=== PATIENT | female | born 1985 | race Caucasian/White ===

== ENCOUNTER 2022-02-01 11:44 | Outpatient (CLI) | payer SELFPAY ==
--- NOTE | ~2022-02-01 | MMUS_ITS ---
EXAMINATION: MM diagnostic panfilo BI w remedios, US breast BI complete HISTORY: Palpable breast lumps. TECHNIQUE: Additional 3-D tomosynthesis images of the breasts were performed and synthetic 2-D images were generated. CAD analysis was submitted and interpreted. High resolution bilateral complete breas t ultrasound was performed. COMPARISON: No prior studies for comparison. BREAST PARENCHYMAL COMPOSITION: The breasts are heterogenously dense, which may obscure small masses FINDINGS: MAMMOGRAPHIC FINDINGS: There are multiple masses in both breasts which are partially obscured by fibroglandular tissue. Larg est in the left breast in the upper outer quadrant measures approximately 3 cm. In the upper outer qu adrant of the right breast there is a 1 cm mass. ULTRASOUND: Complete bilateral US of all 4 quadrants of the breasts and retroareolar region was reviewed. Multipl e bilateral breast cysts, largest in the right breast measuring 1 cm. Largest in the left breast in t he area of palpable concern at 4:00 measuring 2.1 cm maximum dimension. At 1:00, 10 cm from the nippl e there is a 2.6 cm cyst. IMPRESSION: 1. Multiple bilateral breast cysts corresponding to the areas of palpable concern. No evidence for ma lignancy in either breast. 2. Routine yearly screening mammogram and regular clinical breast examination are recommended. BI-RADS Category 2: Benign finding(s). Reviewed, dictated and finalized at location A. IMPRESSION: 1. Multiple bilateral breast cysts corresponding to the areas of palpable hitesh rn. No evidence for malignancy in either breast. 2. Routine yearly screening mammogram and regular clinical breast examination a re recommended. BI-RADS Category 2: Benign finding(s).
== END 2022-02-01 11:45 | disposition home or self-care (01) ==
PROVIDERS: PCP Family Medicine; Visit Provider Nurse Practitioner Obstetrics & Gynecology
DX: N63.32 Unspecified lump in axillary tail of the left breast (principal)
CPT/HCPCS: 76641; 77061; 77062; 77065; 77066; G0279

== ENCOUNTER 2023-09-26 08:41 | Outpatient (CLI) | payer OTHER, SELFPAY ==
--- NOTE | 2023-09-26 08:51 | ECG_ITS ---
Measurements Intervals [place] Rate: 70 P: 42 MA: 133 QRS: -24 QRSD: 83 T: 27 QT: 403 QTc: 437 Interpretive Statements SINUS RHYTHM WITH MARKED SINUS ARRHYTHMIA BORDERLINE LEFT AXIS DEVIATION [QRS AXIS < -20] LOW QRS VOLTAGE IN PRECORDIAL LEADS [QRS DEFLECTION < 1.0 mV IN CHEST LEADS] BORDERLINE ECG NO PREVIOUS ECG AVAILABLE FOR COMPARISON Electronically Signed On 09-26-2023 16:24:53 MACHINE REPAIRMAN by John Weir M.D.
[2023-09-26 09:15] LABS: Basophils Percent Auto 0.6 % (0.2-1.2); Eosinophils Absolute Auto 0.1 K/mm3 (0-0.3); Eosinophils Percent Auto 1.3 % (0-4.4); Hematocrit 43.2 % (37.0-47.0); Hemoglobin 13.5 g/dL (12.0-15.0); Immature Granulocyte Absolute 0.03 K/mm3 (0.00-0.031); Immature Granulocyte Percent A 0.4 % (0-0.5); Lymphocytes Percent Auto 22.2 % (18.3-44.2); Mean Corpuscular HGB Conc 31.3 g/dl (32-36); Mean Corpuscular Hemoglobin 28.1 pg (26-34); Mean Platelet Volume 9.6 fl (7.4-10.4); Monocytes Absolute Auto 0.4 K/mm3 (0.1-0.6); Monocytes Percent Auto 6.2 % (2.6-8.5); Neutrophils Absolute Auto 4.7 K/mm3 (1.3-6.7); Neutrophils Percent Auto 69.3 % (45.5-73.1); Platelet Count Result 272 k/mm3 (150-375); Red Cell Distribution Width 12.6 % (11.5-14.5); White Blood Count 6.8 K/mm3 (4.5-10.0)
[2023-09-26 09:48] LABS: Free T4 Free Thyroxine 1.22 ng/mL (0.78-2.19)
[2023-09-26 09:56] LABS: Thyroid Stimulating Hormone 0.638 uIU/mL (0.465-4.680)
[2023-09-26 10:05] LABS: Alanine Aminotransferase 15 U/L (6-35); Alkaline Phosphatase 62 U/L (38-126); Aspartate Amino Transferase 24 U/L (14-36); Blood Urea Nitrogen 22 mg/dL (7-17); Calcium 9.2 mg/dL (8.4-10.2); Chloride 105 mmol/L (98-107); Glucose 100 mg/dL (65-110); Potassium 4.3 mmol/L (3.4-5.0); Sodium 138 mmol/L (137-145)
[2023-09-26 10:06] LABS: Albumin Level 4.4 g/dL (3.5-5.1); Anion Gap 5 mmol/L (8-16); Carbon Dioxide 28 mmol/L (22-30); Estimated Glomerular Filt Rate > 60
== END 2023-09-26 08:42 | disposition home or self-care (01) ==
LOC: ANHLAB 08:42
PROVIDERS: PCP Family Medicine; Visit Provider Physician Assistant
DX: D64.9 Anemia, unspecified (principal); R42 Dizziness and giddiness; R00.2 Palpitations; R94.31 Abnormal electrocardiogram [ECG] [EKG]
CPT/HCPCS: 36415; 80053; 84439; 84443; 85025; 93005

== ENCOUNTER 2024-01-28 10:21 | Outpatient (CLI) | payer OTHER, SELFPAY ==
--- NOTE | ~2024-01-28 | MMUS_ITS ---
EXAMINATION: MM diagnostic panfilo BI w remedios, US breast BI limited HISTORY: Palpable lumps outer left breast TECHNIQUE: 3-D tomosynthesis images of the bilateral breasts were performed and synthetic 2-D images were generated. CAD analysis was submitted and interpreted. High resolution limited bilateral breast ultrasound was performed. COMPARISON: 02/01/2022 FINDINGS: MAMMOGRAPHIC FINDINGS: Breast parenchyma is extremely dense, which lowers the sensitivity of mammography. There are multiple low-density bilateral breast masses, most prominent at the upper, outer left breast, most compatible multiple bilateral cysts and/or fibroadenomas. No overtly suspicious mammographic mass identified. N o architectural distortion or suspicious microcalcifications seen in either breast. ULTRASOUND: There are multiple simple or otherwise benign cysts seen in the region scanned in both breasts, invol ving the left 2:00, 4:00, 9:00 positions, and the right subareolar and 4:00 positions. Largest indivi dual cyst is at the 2:00 position left breast, measuring 4 cm in maximum diameter. No solid or otherw ise suspicious lesions seen in the regions scanned sonographically. IMPRESSION: No evidence for malignancy. Multiple breast cysts, as detailed above. BI-RADS Category 2: Benign finding(s). Reviewed, dictated and finalized at location M. IMPRESSION: No evidence for malignancy. Multiple breast cysts, as detailed above. BI-RADS Category 2: Benign finding(s).
== END 2024-01-28 10:22 | disposition home or self-care (01) ==
PROVIDERS: PCP Family Medicine; Visit Provider Nurse Practitioner
DX: N63.0 Unspecified lump in unspecified breast (principal)
CPT/HCPCS: 76642; 77062; 77066; G0279

== ENCOUNTER 2024-09-05 10:22 | Emergency (ER) | payer OTHER, SELFPAY ==
--- OUTSIDE RECORDS SUMMARY | 2024-09-05 10:34 | XMS_ITS | Referral Summary ---
Author Organization [facility] Address [address] [place] [address] Care Team Providers Care Mailroom Assistant Name Role Phone Keegan Velasquez MD Primary Care Provider [phone] Source Comments [facility],non-owned Affiliates and Associated Physician Practices is amultiple site organization consisting of ambulatory clinics and hospital sitesin [place] and [place]. This disclosure is being madepursuant to the Care Everywhere program and may not contain all information available regarding this patient. Last updated 18.[facility] Allergies No known active allergies Medications Be aware that medications may not be up to date on this document. Always verify current medications with the patient. No known medications Active Problems No known active problems Social History Tobacco Use Types Packs/Day Years Used Date Smoking Tobacco: Never Smokeless Tobacco: Never Tobacco Cessation:Counseling Given: Not Answered Sex and Gender Information Value Date Recorded Sex Assigned at Not on file Gender Identity Not on file Sexual Orientation Not on file Last Filed Vital Signs Vital Sign Reading Time Taken Comments Blood Pressure 112/62 02/15/2024 3:22 PM CDT Pulse 90 02/15/2024 3:22 PM CDT Temperature 37.2 ??C (98.9 ??F) 02/15/2024 3:22 PM CD T Respiratory Rate 16 04/27/2020 6:30 PM CDT Oxygen Saturation 96% 02/15/2024 3:22 PM CDT Inhaled Oxygen Concentration - - Weight 58.8 kg (129 lb 9.6 oz) 02/15/2024 3:22 P M CDT Height 160 cm (5' 3 ) 04/27/2020 6:30 PM CDT Body Mass Index 22.96 04/27/2020 6:30 PM CDT Plan of Treatment Not on file Care Teams Mailroom Assistant Relationship Specialty Start Date End Date Keegan Velasquez MD [address] [place] [address] PCP - General Family Medicine 01/10/24
--- OUTSIDE RECORDS SUMMARY | 2024-09-05 10:34 | XMS_ITS | Clinical Summary ---
Author Organization [facility] Address [address] [place] [address] Care Team Providers Care Environmental Sciences Professor Name Role Phone Keegan Velasquez MD Primary Care Provider [phone] Source Comments [facility],non-owned Affiliates and Associated Physician Practices is amultiple site organization consisting of ambulatory clinics and hospital sitesin [place], [place] and [place]. This disclosure is being madepursuant to the Care Everywhere program and may not contain all information available regarding this patient. Last updated 18.[facility] Allergies No known active allergies Medications Be [...] 04/27/2020 6:30 PM CDT Plan of Treatment Health Maintenance Due Date Last Done Comments HIV SCREENING 11/16/1999 HEPATITIS C SCREENING 11/11/2002 DTAP/TDAP/TD VACCINES (1 - Tdap) 11/16/2003 HEPATITIS B VACCINE (1 of 3 - 19+ 3-dose series) 11/16/2003 COVID-19 VACCINE (1 - 2023-2 5 season) 2024 INFLUENZA VACCINE (#1) 2024 DEPRESSION SCREENING 08/06/2024 PAP SMEAR 01/08/2027 01/09/2024 ZOSTER VACCINE (1 of 2) 2034 HIB VACCINE Aged Out No longer eligi ble based on patient's age to complete this topic HPV VACCINE Aged Out No longer eligi ble based on patient's age to complete this topic MENINGOCOCCAL (Group B) VACCINE Aged Out No longer eligible based on patient's age to complete this topic MENINGOCOCCAL VACCINE Aged Out No zeynep guzman eligible based on patient's age to complete this topic PNEUMOCOCCAL VACCINE Aged Out No long er eligible based on patient's age to complete this topic Care Teams Environmental Sciences Professor Relationship Specialty Start Date End Date Keegan Velasquez MD [address] [place] [address] PCP - General Family Medicine 01/10/24
--- OUTSIDE RECORDS SUMMARY | 2024-09-05 10:34 | XMS_ITS | Data Portability ---
Author Organization [facility] [place] Address [address] [place] [address] Care Team Providers Care Template Fitter Name Role Phone MARCE FAUST Primary Care Provider Assessment Encounter Date Assessment Date Assessment LastModified by Organization Details LastModified Time 10/25/2021 10/25/2021 Annual gynecological exam performed. Patient will come back in a year unless there are new symptoms. Not available 10/25/2021 12:30:11 01/09/2024 01/09/2024 Annual gynecological exam performed. Patient will come back in a year unless there are new symptoms. Not available 01/09/2024 12:24:45 Plan of Treatment Reminders Order Date Submit Date Provider Last Modified By Organization Details Last Modified Time Details Appointments None recorded. Lab hormone panel, serum or plasma 2023 [facility] (Lab), [address], [place], [address], 4 04:37:43 25-hydroxyv itamin D2 + 25-hydroxyv itamin D3, QN, serum or plasma 2023 024 [facility] (Lab), [address], [place], [address], 4 04:37:44 TSH, serum or plasma 2023 024 [facility] (Lab), [address], [place], [address], 4 04:37:43 free T3, quantitativ e, dialysis serum or plasma 2023 024 [facility] (Lab), [address], [place], [address], 4 04:37:42 T4, free, serum 2023 024 [facility] (Lab), [address], [place], [address], 4 04:37:43 thyroglobul in Ab, serum 2023 024 [facility] (Lab), [address], [place], [address], 4 04:37:42 CBC w/ auto diff 2023 024 [facility] (Lab), [address], [place], [address], 4 04:37:41 Referral None recorded. Procedures None recorded. Surgeries None recorded. Imaging MAMMO, diagnostic, digital, bilateral 2023 024 [facility], [address], [address], [place], [address], 4 14:45:47 US, breast, unilateral, w/ axilla - left breast lumps, around 2-4 oclock 2023 024 [facility], [address], [place], [address], 4 05:01:48 Medication Orders None recorded. Patient TargetsNo targets recorded. Patient InstructionsNo instructions recorded. Reason for Referral None Reported. 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 Elect pieter perdomo felisa d by Deidre thomas, Vin subramanian, CT on 022 at 5:01 PM ----- ----- ----- ----- ----- ----- ----- ----- ----- ----- ----- ----- ----- ----- ----- ----- ----- ---- HPV RESUL TS: HPV mRNA E6/E7 : No HPV mRNA Detec yolanda NOTE: This high risk HPV mRNA assay detec ts fourt een high- risk HPV types (16, 18, 31, 33, 35, 39, 45, 51, 52, 56, 58, 59, 66, 68) witho ut diffe renti ation . COMME NT: Note: This speci men was revie wed by a Cytot echno logis t and/o r Patho logis t (as indic ated in this repor t) after evalu ation using the Thinp rep Imagi ng Syste m. CLINI GITA INFOR MATIO N: Menst rual Statu s: LMP (if appli cable ): Clini gita Histo ry/Pr eviou s Pap: Type of Neopl dagmar (if appli cable ): Signi fican t Clini gita Findi ngs: Other Histo ry: Hormo kiya (if appli cable ): PAP EDUCA DORA L NOTE: The Pap Test is a scree mars test with an inher ent false negat delphine rate. Liqui d-bas ed sampl ing may decre ase, but will not elimi mara, false negat delphine resul ts. A negat delphine resul t does not precl ude the prese nce and/o r devel opmen t of disea se, since the prese nce of abnor mal cells in the sampl e depen ds on the locat ion of the lesio n and sampl ing techn ique. Nadia nued regul ar scree mars is the best metho d of cance r preve ntion . If repor yolanda cytol ogic findi ng do not corre late with physi gita and/o r histo rical findi ngs, furth er inves tigat ion is recom anabela d, as clini michael kamara nted. Not Available [facility] (Lab) [address] [facility] [address], [place], [address], 11/09/2021 18:04:42 01/09/20 24 01/09/2024 CBC W/DIF F WBC 7.1 10'3/ uL 3.5-10 .5 Not Available [facility] (Lab) [address] [facility], [place], [address], 01/10/2024 04:37:41 01/09/20 24 01/09/2024 CBC W/DIF F RBC 4.91 10'6/ uL (based on docume nted legal sex) 3.80-5 .20 Not Available [facility] (Lab) [address] [place], [address], 01/10/2024 04:37:41 01/09/20 24 01/09/2024 CBC W/DIF F HGB 14.0 g/dL (based on docume nted legal sex) 11.6-1 5.4 Not Available [facility] (Lab) [address] [facility], [place], [address], 01/10/2024 04:37:41 01/09/20 24 01/09/2024 CBC W/DIF F HCT 43.3 % (based on docume nted legal sex) 34.0-4 5.0 Not Available [facility] (Lab) [address], [place], [address], 01/10/2024 04:37:41 01/09/20 24 01/09/2024 CBC W/DIF F MCV 88.2 fL 80.0-9 9.0 Not Available [facility] (Lab) [address], [place], [address], 01/10/2024 04:37:41 01/09/20 24 01/09/2024 CBC W/DIF F MCH 28.5 pg 27.0-3 4.0 Not Available [facility] (Lab) [address], [place], [address], 01/10/2024 04:37:41 01/09/20 24 01/09/2024 CBC W/DIF F MCHC 32.3 g/dL 32.0-3 5.5 Not Available [facility] (Lab) [address], [place], [address], 01/10/2024 04:37:41 01/09/20 24 01/09/2024 CBC W/DIF F RDW 12.4 % 11.0-1 5.0 Not Available [facility] (Lab) [address], [place], [address], 01/10/2024 04:37:41 01/09/20 24 01/09/2024 CBC W/DIF F plt 323 10'3/ uL 150-40 0 Not Available [facility] (Lab) [address] [place], [address], 01/10/2024 04:37:41 01/09/20 24 01/09/2024 CBC W/DIF F MPV 9.6 fL 8.8-12 .1 Not Available [facility] (Lab) [address], [place], [address], 01/10/2024 04:37:41 01/09/20 24 01/09/2024 CBC W/DIF F NRBC's 0.0 % 0.0 Not Available [facility] (Lab) [address] [facility], [place], [address], 01/10/2024 04:37:41 01/09/20 24 01/09/2024 CBC W/DIF F absolute NRBCs 0.0 10'3/ uL no refere nce range establ ished Not Available [facility] (Lab) [address] [facility], [place], [address], 01/10/2024 04:37:41 01/09/20 24 01/09/2024 CBC W/DIF F neutrophils 67.4 % 34.0-7 3.0 Not Available [facility] (Lab) [address] [facility], [place], [address], 01/10/2024 04:37:41 01/09/20 24 01/09/2024 CBC W/DIF F lymphocytes 23.8 % 15.0-5 0.0 Not Available [facility] (Lab) [address] [facility], [place], [address], 01/10/2024 04:37:41 01/09/20 24 01/09/2024 CBC W/DIF F monocytes 7.0 % 1.0-15 .0 Not Available [facility] (Lab) [address] [facility], [place], [address], 01/10/2024 04:37:41 01/09/20 24 01/09/2024 CBC W/DIF F eosinophils 1.1 % 0.0-8. 0 Not Available [facility] (Lab) [address] [place], [address], 01/10/2024 04:37:41 01/09/20 24 01/09/2024 CBC W/DIF F basophils 0.4 % 0.0-2. 0 Not Available [facility] (Lab) [address] [facility], [place], [address], 01/10/2024 04:37:41 01/09/20 24 01/09/2024 CBC W/DIF F immature granulocytes 0.3 % no define d refere nce range Not Available [facility] (Lab) [address] [facility], [place], [address], 01/10/2024 04:37:41 01/09/20 24 01/09/2024 CBC W/DIF F absolute neutrophils 4.8 10'3/ uL 1.5-8. 0 Not Available [facility] (Lab) [address], [place], [address], 01/10/2024 04:37:41 01/09/20 24 01/09/2024 CBC W/DIF F absolute lymphocytes 1.7 10'3/ uL 1.0-4. 0 Not Available [facility] (Lab) [address], [place], [address], 01/10/2024 04:37:41 01/09/20 24 01/09/2024 CBC W/DIF F absolute monocytes 0.5 10'3/ uL 0.2-1. 0 Not Available [facility] (Lab) [address] [place], [address], 01/10/2024 04:37:41 01/09/20 24 01/09/2024 CBC W/DIF F absolute eosinophils 0.1 10'3/ uL 0.0-0. 6 Not Available [facility] (Lab) [address] [place], [address], 01/10/2024 04:37:41 01/09/20 24 01/09/2024 CBC W/DIF F absolute basophils 0.0 10'3/ uL 0.0-0. 3 Not Available [facility] (Lab) [address] [place], [address], 01/10/2024 04:37:41 01/09/20 24 01/09/2024 CBC W/DIF F absolute immature granulocytes 0.0 10'3/ uL 0.00-0 .10 024 1:48 AM: P indic ates parti al resul ts on a panel have been relea sed. Addit ional resul ts will follo w. 024 1:49 AM: This resul t has been final verif ied. No addit ional or alvarado ed resul ts are expec yolanda. Not Available [facility] (Lab) [address] [facility], [place], [address], 01/10/2024 04:37:41 01/09/20 24 01/09/2024 THYRO ID ANTIB LYNDA PANEL thyroglobuli n antibody <1.0 IU/mL <=3.9 Not Available [facility] (Lab) [address] [facility] [address], [place], [address], 01/10/2024 04:37:42 01/09/20 24 01/09/2024 THYRO ID ANTIB LYNDA PANEL thyroperoxid ase antibodies 203.4 IU/mL 0.0-9. 0 high This assay was perfo rmed using [employer] reage nts and test kits. Value s obtai isaiah with other assay metho ds or kits canno t be used inter alvarado eagaylay . Not Available [facility] (Lab) [address] [facility], [place], [address], 01/10/2024 04:37:42 01/09/20 24 01/09/2024 FREE T3 T3, free 2.61 pg/mL 2.00-4 .40 This assay is susce ptibl e to inter feren ce from high level s of bioti n which may false ly eleva te resul ts. Pleas e corre late with clini gita findi ngs inclu ding TSH and FT4 resul ts. If clini michael indic ated, Free T3 by Equil verna Pleitez sis LC/MS may be perfo rmed. Not Available [facility] (Lab) [address] [place], [address], 01/10/2024 04:37:42 01/09/20 24 01/09/2024 FSH, LH, ESTRA DIOL estradiol 128.0 pg/mL This assay was perfo rmed using [employer] n reage nts and test kits. Value s obtai isaiah with other assay metho ds or kits canno t be used inter [facility] . Femal e Estra diol Range s: Folli cular phasE 12.4- 233 pg/mL Ovula tion phasE 41.0- 398 pg/mL Lutea l phasE 22.3- 341 pg/mL Postm enopa usal <5-13 8 pg/mL Healt hy Pregn ant Women 1st Trime ster 154-3 243 pg/mL 2nd Trime ster 1561- 90929 pg/mL 3rd Trime ster 8525- >3000 0 pg/mL Not Available [facility] (Lab) [address] [place], [address], 01/10/2024 04:37:42 01/09/20 24 01/09/2024 FSH, LH, ESTRA DIOL FSH 4.4 mIU/m L This assay was perfo rmed using [employer] reage nts and test kits. Value s obtai isaiah with other assay metho ds or kits canno t be used inter [facility] . Femal es Folli cular : 3.5-1 2.5 mIU/m L Ovula tion: 4.7-2 1.5 mIU/m L Lutea l: 1.7-7 .7 mIU/m L Postm enopa use: 25.8- 134.8 mIU/m L Not Available [facility] (Lab) [address] [place], [address], 01/10/2024 04:37:42 01/09/20 24 01/09/2024 FSH, LH, ESTRA DIOL LH 3.6 mIU/m L This assay was perfo rmed using [employer] reage nts and test kits. Value s obtai isaiah with other assay metho ds or kits canno t be used inter alvarado eably . Femal es Mid-F ollic ular: 2.4-1 2.6 mIU/m L Mid-C ycle: 14.0- 95.6 mIU/m L Mid-L uteal : 1.0-1 1.4 mIU/m L Postm enopa use: 7.7-5 8.5 mIU/m L Not Available [facility] (Lab) [address] [place], [address], 01/10/2024 04:37:42 01/09/20 24 01/09/2024 TSH TSH 1.24 uIU/m L 0.30-5 .33 Not Available [facility] (Lab) [address] [place], [address], 01/10/2024 04:37:43 01/09/20 24 01/09/2024 T4 FREE T4, free 0.74 NG/dL 0.60-1 .40 This assay is susce ptibl e to inter feren ce from high level s of bioti n which may false ly eleva te resul ts. Pleas e corre late with clini gita findi ngs. Not Available [facility] (Lab) [address] [place], [address], 01/10/2024 04:37:43 01/09/20 24 01/09/2024 VITAM IN D, 25-OH (TOTA L D2/D3 ) vitamin D, 25-hydroxy, total 26.4 NG/mL 30.0-1 00.0 low Sug[place] stive of Defic iency : <20 ng/mL Sugge stive of Insuf ficie ncy: 20-29 ng/mL Sugge stive of Suffi cienc y: 30-10 0 ng/mL Sugge stive of Toxic ity: >150 ng/mL Not Available [facility] (Lab) [address] [place], [address], 01/10/2024 04:37:44 01/09/20 24 01/09/2024 IMAGE GUIDE D PAP AND HPV REGAR DLESS image guided Pap, HPV regardless of Pap result SEE RESULT S BELOW CASE REPOR T: Cytol ogy Gynec ologi gita Repor t Case: [id number] Autho lucila gayle Provi mary: Lory Courtney, NOE Oconnell cted: 01/08 1604 Order ing Locat ion: [place] Patho logy Recei fannie: 01/09 0126 First Scree n: Katie Ramirez ret, CT Rescr een: Amaya Hay ed, CT Speci men: Mckinley crews Pap - Image d, Cervi x STATE MENT OF ADEQU ACY: Satis facto ry for evalu ation Trans forma tion zone compo nent prese nt ----- ----- ----- ----- ----- ----- ----- ----- ----- ----- ----- ----- ----- ----- ----- ----- ----- ---- FINAL DIAGN OSIS: Negat delphnie for Intra epith elial Abdiel rahman or Myles silva (NIL) . Dylan carpio by Amaya Hay ed, CT on 024 at 7:41 PM ----- ----- ----- ----- ----- ----- ----- ----- ----- ----- ----- ----- ----- ----- ----- ----- ----- ---- HPV RESUL TS: HPV mRNA E6/E7 : No HPV mRNA Detec yolanda NOTE: This high risk HPV mRNA assay detec ts fourt een high- risk HPV types (16, 18, 31, 33, 35, 39, 45, 51, 52, 56, 58, 59, 66, 68) witho ut diffe renti ation . COMME NT: This speci men was revie wed by a Cytot echno logis t and/o r Patho logis t (as indic ated in this repor t) after evalu ation using the Thinp rep Imagi ng Syste m. CLINI GITA INFOR MATIO N: Menst rual Statu s: LMP (if appli cable ): Clini gita Histo ry/Pr eviou s Pap: Type of Neopl dagmar (if appli cable ): Signi fican t Clini gita Findi ngs: Other Histo ry: Hormo kiya (if appli cable ): PAP EDUCA DORA L NOTE: The Pap Test is a scree mars test with an inher ent false negat delphine rate. Liqui d-bas ed sampl ing may decre ase, but will not elimi mara, false negat delphine resul ts. A negat delphine resul t does not precl ude the prese nce and/o r devel opmen t of disea se, since the prese nce of abnor mal cells in the sampl e depen ds on the locat ion of the lesio n and sampl ing techn ique. Nadia nued regul ar scree mars is the best metho d of cance r preve ntion . If repor yolanda cytol ogic findi ng do not corre late with physi gita and/o r histo rical findi ngs, furth er inves tigat ion is recom anabela d, as clini michael warra nted. Not Available [facility] (Lab) [address] [facility], [place], [address], 01/11/2024 20:45:24 02/03/20 22 02/01/2022 MAMMO , diagn ostic , digit al, bilat eral No observ ation record ed. [address], [address], 04/27/2022 20:50:38 02/03/20 22 02/01/2022 MAMMO , diagn ostic , digit al, bilat eral No observ ation record ed. [place] [id number] [facility] [address], [place], [address], 02/09/2023 15:40:05 01/28/20 24 01/28/2024 MAMMO , diagn ostic , digit al, bilat eral No observ ation record ed. [facility] [address], [place], [address], 02/12/2024 04:02:04 Result Notes None recorded. Problems Name Problem SNOMED Code Status Onset Date Resolution Date Notes Provider Name and Address Organization Details Recorded Time Routine antenata l care Completed 201110/24/2021 Supervisi on of other normal ;Practice ID: 0001 Rosalinda [facility] 2 15:09:07 Female genital organ symptoms [id number] Completed 201110/24/2021 Unspecifi ed symptom associate d with female genital organs;Re corded Elsewhere : No Locati on: [facility] So urce: EHR Chron ic: N Practic e ID: 0001 Bill able Time: 04:00:00 PM Rosalinda [facility] 2 15:08:47 Pregnanc y test positive [id number] Completed 201110/24/2021 examinati on or test, positive result;Re corded Elsewhere : No Locati on: [facility] So urce: EHR Chron ic: N Practic e ID: 0001 Bill able Time: 04:45:00 PM [facility] 2 15:09:02 Urinary tract infectio us disease [id number] Completed 201110/24/2021 Urinary Tract Infection ;Recorded Elsewhere : No Locati on: [facility] So urce: EHR Chron ic: N Practic e ID: 0001 Bill able Time: 10:45:00 AM [facility] 2 15:09:[address] Concept Completed 201510/24/2021 Encntr for general adult medical exam w/o abnormal findings; Recorded Elsewhere : No Locati on: [facility] So urce: EHR Chron ic: N Practic e ID: 0001 Bill able Time: 10:30:00 AM Rosalinda Lin [facility] 2 15:09:12 Ollie betancourt medical examinat ion Completed 201310/24/2021 Gynecolog ical Examinati on;Record ed Elsewhere : No Locati on: [facility] So urce: EHR Chron ic: N Practic e ID: 0001 Bill able Time: 10:30:00 AM Rosalinda Lin [facility] 2 15:09:17 Postpart um care Completed 201110/24/2021 Routine postpartu m follow-up ;Recorded Elsewhere : No Locati on: [facility] So urce: EHR Chron ic: N Practic e ID: 0001 Bill able Time: 01:15:00 PM Rosalinda Lin [facility] 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 So urce: EHR Chron ic: N Practic e ID: 0001 Bill able Time: 10:30:00 AM Rosalinda Lin [facility] 2 15:09:15 Insertio n of intraute rine contrace ptive device Completed 201310/24/2021 INSERTION OF IUD;Recor ded Elsewhere : No Locati on: [facility] So urce: EHR Chron ic: N Practic e ID: 0001 Bill able Time: 08:00:00 AM Rosalinda Lin [facility] 2 15:08:52 Nausea and vomiting [id number] Completed 201110/24/2021 Nausea And Vomiting; Recorded Elsewhere : No Locati on: [facility] So urce: EHR Chron ic: N Practic e ID: 0001 Bill able Time: 04:00:00 PM Rosalinda Lin [facility] 2 15:08:59 Ultrason ography Completed 201310/24/2021 screening for malformat ion using ultrasoni cs;Record ed Elsewhere : No Locati on: [facility] So urce: EHR Chron ic: N Practic e ID: 0001 Bill able Time: 03:30:00 PM Rosalinda Lin [facility] 2 15:09:19 Antenata l screenin g Completed 201310/24/2021 screening for malformat ion using ultrasoni cs;Record ed Elsewhere : No Locati on: [facility] So urce: EHR Chron ic: N Practic e ID: 0001 Bill able Time: 03:30:00 PM Rosalinda Lin [facility] 2 15:08:40 Congenit al malforma tion [id number] Completed 201310/24/2021 screening for malformat ion using ultrasoni cs;Record ed Elsewhere : No Locati on: [facility] So urce: EHR Chron ic: N Practic e ID: 0001 Bill able Time: 03:30:00 PM Rosalinda Lin [facility] 2 15:08:43 Removal of intraute rine device Completed 201310/24/2021 REMOVAL OF IUD;Recor ded Elsewhere : No Locati on: [facility] So urce: EHR Chron ic: N Practic e ID: 0001 Bill able Time: 03:45:00 PM Rosalinda Lin [facility] 2 15:09:05 Screenin g for malignan t neoplasm of cervix Completed 201110/24/2021 Screening for malignant neoplasms of the cervix;Re corded Elsewhere : No Locati on: [facility] So urce: EHR Chron ic: N Practic e ID: 0001 Bill able Time: 04:45:00 PM Rosalinda Lin [facility] 2 15:09:08 Amenorrh ea [id number] Completed 201110/24/2021 Absence of menstruat ion;Recor ded Elsewhere : No Locati on: [facility] So urce: EHR Chron ic: N Practic e ID: 0001 Bill able Time: 04:45:00 PM [facility] 15:08:38 Leukocyt osis [id number] Completed 201310/24/2021 LEUKOCYTO SIS NOS;Recor ded Elsewhere : No Locati on: [facility] So urce: EHR Chron ic: N Practic e ID: 0001 Bill able Time: 10:30:00 AM [facility] 2 15:08:53 Leukopen ia [id number] Completed 201110/24/2021 LEUKOCYTO PENIA NOS;Pract ice ID: 0001 Rosalinda Lin [facility] 2 15:08:55 Proteinu zander [id number] Completed 201110/24/2021 Proteinur ia;Practi ce ID: 0001 Rosalinda Lin [facility] 2 15:09:04 anatomy study Completed 201110/24/2021 [facility] SURVEY;Pr actice ID: 0001 Rosalinda Lin [facility] 2 15:08:50 Complica tion of pregnanc y, childbir th and/or puerperi [id number] Completed 201310/24/2021 Other current condition s classifia ble elsewhere of mother, antepartu m;Practic e ID: 0001 Rosalinda Lin [facility] 2 15:08:41 Delivery normal [id number] Completed 201310/24/2021 Normal delivery; Practice ID: 0001 [facility] 2 15:08:45 Single live [id number] Completed 201310/24/2021 Mother with single liveborn; Practice ID: 0001 Rosalinda Lin [facility], [facility] 2 15:09:10 Mild hypereme sis-not delivere d [id number] Completed 201310/24/2021 Hyperemes is gravidaru m, antepartu m Mild;Prac kristi ID: 0001 Rosalinda Lin [facility], [facility] 2 15:08:57 Problem Notes None recorded. Procedures Surgical History Date Name Laterality Status Provider Name and Address Organization Details Recorded Time 5 hernia repair completed [facility] 01/09/2024 12:29:39 5 excision of cyst of breast completed [facility] 01/09/2024 12:29:25 Imaging Results Imaging Date Name Status LastModified by Organiz ation Details LastModified Time 02/01/2022 MAMMO, diagnostic, digital, bilateral completed [address], [address], 04/27/2022 20:50:38 02/01/2022 MAMMO, diagnostic, digital, bilateral completed [address] [place] [address], [address], 02/09/2023 15:40:05 01/28/2024 MAMMO, diagnostic, digital, bilateral active [address], [address], 02/12/2024 04:02:04 Procedure Notes None recorded. Medical Equipment None Reported. Allergies No known drug allergies Medications Name Sig Start Date Stop Date Status Note LastModified by Organization Details LastModified Time cyclobenz aprine 10 mg tablet TAKE 1 TABLET BY MOUTH THREE TIMES DAILY NEEDED FOR MUSCLE SPASM 01/26 completed Not Available Not Available Not Available azithromy greg 250 mg tablet TAKE 2 TABLETS BY MOUTH ON DAY 1 THEN 1 TABLET BY MOUTH ON DAYS 2 THROUGH 5 03/22 /2022 completed Not Available Not Available Not Available Reglan 10 mg tablet take 1 tablet (10MG) by oral route every 6 hours as needed for nausea 05/19 completed Prescrib ed Elsewher e: No Locat ion: [facility] By: paulette cottounter DateTime : 09/17/19 14 01:30:00 PM Not Available Not Available Not Available Macrobid 100 mg capsule take 1 capsule (100MG) by oral route every 12 hours with food 05/15 completed Prescrib ed Elsewher e: No Locat ion: [facility] By: amber gutierrez DateTime : 10/02/19 12 10:45:00 AM Not Available Not Available Not Available Zofran 4 mg tablet take 1 by Oral route every 6 hours prn for nausea 05/15 completed Prescrib ed Elsewher e: No Locat ion: [facility] By: amber gutierrez DateTime : 09/29/19 12 01:40:51 PM Not Available Not Available Not Available Zofran 8 mg tablet take 1 tablet (8MG) by oral route every 12 hours 05/19 completed Prescrib ed Elsewher e: No Locat ion: [facility] By: paulette cottounter DateTime : 09/09/19 14 10:30:00 AM Not Available Not Available Not Available buspirone 10 mg tablet TAKE 1 TABLET BY MOUTH THREE TIMES DAILY NEEDED FOR ANXIETY 01/08 completed Not Available Not Available Not Available cephalexi n 500 mg tablet take 1 tablet (500MG) by oral route every 6 hours 10 days 05/19 completed Prescrib ed Elsewher e: No Locat ion: [facility] By: paulette cottounter DateTime : 10/28/19 14 05:02:35 PM Not Available Not Available Not Available hydroxyzi ne HCl 25 mg tablet TAKE 1 TABLET BY MOUTH THREE TIMES DAILY NEEDED FOR ANXIETY 01/26 completed Not Available Not Available Not Available Nor-Q-D 0.35 mg tablet take 1 tablet by oral route every day 06/25 completed Prescrib ed Elsewher e: No Locat ion: [facility] By: rosalinda gutierrez DateTime : 05/19/20 10:15:00 AM Not Available Not Available Not Available albuterol sulfate HFA 90 mcg/actua tion aerosol inhaler INHALE 1 PUFF BY MOUTH EVERY 4 HOURS NEEDED FOR SHORTNES S OF BREATH OR WHEEZING 01/26 completed Not Available Not Available Not Available Vitamin D2 1,250 mcg (50,000 unit) capsule take 1 capsule ([id number] ITS) by oral route every week 05/19 completed Prescrib ed Elsewher e: No Locat ion: [facility] By: paulette jefferson DateTime : 02/11/20 03:23:27 PM Not Available Not Available Not Available escitalop jared 5 mg tablet TAKE 1 TABLET BY MOUTH DAILY 01/26 completed Not Available Not Available Not Available cholecalc iferol (vitamin D3) 1,250 mcg (50,000 unit) capsule TAKE 1 CAPSULE BY MOUTH WEEKLY active Not Available Not Available No t Available Triveen-D uo DHA 29 mg-1 mg-400 mg oral pack take 2 by Oral route every day for 30 days 10/08 completed Prescrib ed Elsewher e: No Locat ion: [facility] By: isidro jefferson DateTime : 09/09/19 10:30:00 AM Not Available Not Available Not Available - 1 30 mg-975 mcg-200 mg capsule 01/26 completed Prescrib ed Elsewher e: Yes Loca tion: [facility] By: paulette jefferson DateTime : 05/19/20 14 10:15:00 AM Not Available Not Available Not Available Vitals Date Recorded Body height Body mass index (BMI) Body weight Provider Name and Address Organization Details Last Updated DateTime 10/25/2021 160.02 cm 22.9 kg/m2 52964.42 g Rosalinda Lin [place] [facility] 10/25/2021 12:30:47 Date Recorded Systolic blood pressure Diastolic blood pressure Provider Name and Address Organization Details Last Updated DateTime 10/25/2021 116 mm[Hg] 70 mm[Hg] Dian Cortes [facility] [address], [place], [address], [facility] 10/25/2021 13:20:28 Date Recorded Body height Body mass index (BMI) Body weight Systolic blood pressure Diastolic blood pressure Provider Name and Address Organization Details Last Updated DateTime 11/02/2021 160.02 cm 22.9 kg/m2 73968.42 g 110 mm[Hg] 78 mm[Hg] Rosalinda [facility] 09:43:07 Date Recorded Body height Body mass index (BMI) Body weight Provider Name and Address Organization Details Last Updated DateTime 01/26/2022 160.02 cm 23.6 kg/m2 12806.5 g Rosalinda Lin [facility] 01/26/2022 13:11:01 Date Recorded Systolic blood pressure Diastolic blood pressure Provider Name and Address Organization Details Last Updated DateTime 01/26/2022 122 mm[Hg] 74 mm[Hg] Dian Cortes, [facility] [address], [place], [address], [facility] 01/26/2022 13:25:19 Date Recorded Body height Body mass index (BMI) Body weight Systolic blood pressure Diastolic blood pressure Provider Name and Address Organization Details Last Updated DateTime 01/09/2024 160.02 cm 21.8 kg/m2 20838.86 g 103 mm[Hg] 66 mm[Hg] Kenya Fabian [facility] 12:25:54 Social History Question Answer Notes LastModified by Organizat ion Details LastModified Time Tobacco Smoking Status Never Smoker Rosalinda Lin [facility] 10/25/2021 12:34:54 What Is Your Level Of Alcohol Consumption? Occasional Information not available 10/25/2021 Are You Blind Or Do You Have Difficulty Seeing? No Information n ot available 10/25/2021 What Is Your Level Of Caffeine Consumption? Occasional Information not available 10/25/2021 In The 14 Days Before Symptom Onset, Have You Had Close Contact With A Laboratory-confirm ed COVID-19 While That Case Was Ill? No Information n ot available 01/09/2024 In The 14 Days Before Symptom Onset, Have You Had Close Contact With A Person Who Is Under Investigation For COVID-19 While That Person Was Ill? No Information not available 01/09/2024 Have You Been To An Area Known To Be High Risk For COVID-19? No Information not available 01/09/2024 Are You Deaf Or Do You Have Serious Difficulty Hearing? No Information not available 10/25/2021 What Type Of Diet Are You Following? REGULAR Information n ot available 10/25/2021 Do You Use Your Seat Belt Or Car Seat Routinely? Yes Information not available 10/25/2021 Are You Sexually Active? Yes Information not available 10/25/2021 Do You Have Smoke And Carbon Monoxide Detectors In Your Home? Yes Information not available 10/25/2021 Do You Feel Stressed (tense, Restless, Nervous, Or Anxious, Or Unable To Sleep At Night)? [id number] Information not available 10/25/2021 Do You Use Any Illicit Or Recreational Drugs? No Information not available 10/25/2021 Do You Use Sunscreen Routinely? Yes Information not available 10/25/2021 Sex: Unknown Functional Status Question Answer Note LastModified by Organizat ion Details LastModified Time Do you have difficulty walking or climbing stairs? No Information not available 10/25/2021 Are you able to walk? YESWOREST Information not available 10/25/2021 Are you able to care for yourself? Yes Information not available 10/25/2021 Do you have difficulty dressing or bathing? No Information not available 10/25/2021 What is your exercise level? Occasional Information not available 10/25/2021 Mental Status None recorded. Family History Relationship Description Onset Age of this Age Resolved Age Notes LastModified by Organization Details LastModified Time Father Hypertensive disorder Not available 2021 12:33:52 Father Hypercholest erolemia Not available 2021 12:34:05 Father Primary malignant neoplasm of skin of ear Not available 10/05 12:34:32 Mother Diabetes mellitus Not available 2021 12:33:58 Maternal Grandfather Malignant tumor of lung Not available 2021 12:34:17 Medical History Condition Response Allergies (Food, seasonal, environmental ) N Other N Breast Cancer N Drug/Latex Allergies/Reactions N Blood Transfusion N Dermatologic Disorders N Lung Disease N Defects or Inherited Disease N Breast Problem N Gestational Diabetes N Hematologic disorders N Anesthesia Complications N History of STI N Deep Vein Thrombosis N Polycystic ovary syndrome N Anxiety Disorder N Autoimmune disease N Arthritis N Infertility N Polyps N Acid Reflux (GERD) N History of abnormal pap N Cancer N Stroke N Varicosities N Neurologic/Epilepsy N Endometriosis N High Cholesterol N Headaches N Fibromyalgia N Kidney Disease N Heart Problems N Kidney or Bladder Problems N Thyroid Problems N GI Problems N Eating Disorder N Anemia N Art (IVF or FET) N Psychiatric Illness N Ovarian Cancer N Diabetes N Pulmonary (TB, Asthma) N Hepatitis/Liver Disease N No Past Medical History N Eczema N Urinary Tract Infection N Abuse/Domestic Violence N Asthma N Trauma/Violence N Depression/ depression N Heart Disease N Pre-Eclampsia N Hypertension N Osteoporosis N Thrombophilias N Gynecological History Statement/Question Response Abnormal Pap N Date of Last Mammogram Flow Moderate Date of LMP 12/22/2023 On BCP's at Conception? N Was last menstrual period normal Y STIs/STDs N HPV Vaccine N Colposcopy Current Control Method Withdrawal Age at First Child 19 Are cycles usually normal Y Date of Last Colonoscopy Sexually Active? Y Menses Monthly Y Age of first menstrual cycle 11 Date of Last Pap Smear Sexual Problems? N LMP Definite Obstetrics History GPAL:G 5 P 0 0 1 4 Type Value Spontaneous 1 Living 4 Total 5 Past Encounters Encounter ID Performer Location Encounter Start Date Encounter Closed Date Diagnosis/Indication Diagnosis SNOMED-CT Code Diagnosis ICD10 Code Diagnosis Note [id number] [facility] [address] [address] 10/25/2021 11:47:00 10/25/2021 13:44:24 Gynecologic examination 44418770 Z01.419 Take Calcium with Vitamin D 1200mg daily if not receiving in daily diet. It is strongly advised to have an annual flu shot and up can obtain at most pharmacies . If you have not had a TDap shot in the last 10 years you should obtain one as well. Discussed with patient & provided with informatio n regarding Gardisil vaccine to prevent the 4 strains for HPV that cause cervical cancer if under age 26. Encourage safe sexual practices, to use condoms and limit partners if not already in a monogamous relationsh ip. Do monthly self breast exams. Have mammogram yearly or every other year depending on family history. BRCA testing is now available for patients with strong genetic history of female cancer. If interested contact the office. Engage in daily exercise of low impact aerobic exercise 45-60 minutes 4-5 times weekly. Avoid tobacco and illicit drugs as well as using moderation with alcohol intake less than 1-2 8 oz beverages daily. This lifestyle behavior pattern will lead to less health conditions and longer life span. If BMI greater than 25 weight watchers or dietary consult advised. Patient received above instructio ns, and questions have been answered. If you have any questions please call or respond to this email. Patient was made aware of the patient portal and may obtain a paper copy of today's plan if desired.Pa p/hpv-sent STD Screen declinedGe netic Screen discussedC olon Screen n/aDexa Screen n/aRoutine Labs UTD Generalize d anxiety disorder 97971810 F41.1 NOTE: had some recent labs done at her regular doctors office. Was told her estrogen was in the 800's and they are repeating it. She is unsure what type of estrogen they measured (i.e. estradiol, total estrogen etc); she feels this level was measured in the second week of menstrual cycle as a whole. Will send report so we can see what second set of labs state. 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 She reports the labs were completed for anxiety. Denies suicidal ideations/ thoughts of self harm.Moved , has teens, and life in general feel stressful to her.Recomm ended finding activities that help her relieve/re lease stress: chiropract ic care, massage, yoga, meditation , physical activity of any type etc. Sometimes you need to find the things that work for you. Declines medication therapy at this time.List of local counselors given [id number] Dian Cortes [facility] [address] [address] 11/02/2021 09:38:01 11/02/2021 09:59:10 Gynecologic examination [id number] Z01.419 Z11.51 Unbillable visit.This visit is to r/p pap/hpv testing due to a lab processing error. [id number] Dian Cortes [facility] [address] [address] 01/26/2022 12:58:42 01/26/2022 13:34:08 Lump of axillary tail of left breast [id number] 55998 N63.32 N63.20 Today we agreed to update imagingWil l await resultsHx of previous breast cysts being removed.Ne g cancerNeg Fam hx cancer Time spent in visit is a total of 15 mins with at least 50% of visit consisting of counseling and review of plan of care. [id number] Lory Courtney [facility] [address] [address] 01/09/2024 12:21:03 01/09/2024 12:55:21 Gynecologic examination [id number] Z01.419 WWEBC - withdrawal pap updateddec lined STI screenUTD with PCP It is strongly advised to have an annual flu shot and up can obtain at most pharmacies . If you have not had a TDap shot in the last 10 years you should obtain one as well.Discu ssed with patient & provided with informatio n regarding Gardisil vaccine to prevent the 4 strains for HPV that cause cervical cancer if under age 26. Encourage safe sexual practices, to use condoms and limit partners if not already in a monogamous relationsh ip. Do monthly self breast exams. BRCA testing is now available for patients with strong genetic history of female cancer. If interested contact the office. Engage in regular exercise. Avoid tobacco and illicit drugs. This lifestyle behavior pattern will lead to less health conditions and longer life span. If BMI greater than 25 dietary consult advised. Patient received above instructio ns, and questions have been answered. If you have any questions please call or respond to this email. Patient was made aware of the patient portal and may obtain a paper copy of today's plan if desired. Breast lump [id number] N63 .0 recommende d bilateral diagnostic mammogram with left breast u/sorder given Fine hair [id number] L67. 8 labs orderedwil l update pt with results when available Health Concerns Section Related Observation LastModified by Organization Detai ls LastModified Time None Recorded Concern Status LastModified by Organization Details LastModified Time None Recorded Advance Directives Directive None Recorded Payers Encounter Date Sequence Insurance Name Policy Number Policy [place] Covered Member ID [place] Member ID Guarantor Name 10/25/2021 1 *SELF PAY* Be verly A Bella 11/02/2021 1 *SELF PAY* Be verly A Bella 01/26/2022 1 *SELF PAY* Be verly A Bella 01/09/2024 1 [facility] [id number] Eladio Bella [id number] Ethel Blanco Notes Date Note Type Note Provider Name and Address Organization Details Recorded Time 10/25/2021 text/html Annual GYNReport ed bypatient.History:no gynecologic complaints Menstrual cycle:Normal menses Urinary symptoms:No hematuria; No incontinence Vulva:No genital lesion Vagina:Normal vaginal discharge Breast:No breast pain; No breast lump; No nipple discharge Current Contraception:Satisf ied with current contraception; Condoms Sexual complaints:No sexual complaints; No pain during intercourse; Normal libido Menopausal Symptoms:No menopausal symptoms; Normal vaginal lubrication Psychological symptoms:No depression; No anxiety; No PMDD Preventive measures:Encourage self breast examination; Encourage regular exercise; Encourage no tobacco use; Encourage regular mammograms starting age 40; Followed with Q3 year pap smear and high risk HPV typing ALEXANDRA Manzo [address], [place], [address], [facility] 10/25/2021 13:38:11 11/02/2021 text/html Unbillable visit.This visit is to r/p pap/hpv testing due to a lab processing error. ALEXANDRA Manzo [address], [place], [address], [facility] 11/02/2021 09:54:31 01/26/2022 text/html Breast MassRepor yolanda bypatient.Location: eft; upper outer quadrant Onset/Timin-4 months; sudden Quality:firm; tender; mobile Severity:mild Duration:constant Context:performs breast self examination; 1 prior biopsies; fibrocystic breasts; breast cysts Associated Symptoms:no fever; no skin redness; no nipple discharge; no breast swelling; no arm pain; no arm swelling; no chest painNotes:Breast ROS: Neg Nipple discharge Neg Skin discoloration or texture changes ++LEFT Breast Lump/Mass Neg Family Hx of breast cancer/other cancers Neg Tenderness/pain Neg Trauma to breast Neg Underwire or ill fitting bras Neg notable assymetry of breasts [facility] [address], [place], [address], [facility] 01/26/2022 13:29:11 01/09/2024 text/html Annual GYNReport ed bypatient.Menstrual cycle:Normal menses Urinary symptoms:No hematuria; No incontinence Vulva:No genital lesion Vagina:Normal vaginal discharge Breast:No breast pain; No breast lump; No nipple discharge Current Contraception:Satisf ied with current contraception; withdrawal Sexual complaints:No sexual complaints; No pain during intercourse; Normal libido Menopausal Symptoms:No menopausal symptoms; Normal vaginal lubrication Psychological symptoms:No depression; No anxiety; No PMDD Preventive measures:Encourage self breast examination; Encourage regular exercise; Encourage no tobacco use; Encourage regular mammograms starting age 40Notes:38yo WWEno h/o abnormal papslast pap 2021 - nilm, HPV (-)BC - withdrawalmonthly periods, every 21-25 daysdenies any heavy or prolonged bleeding diagnostic mammogram done 01/2022 for bilateral breast lumps, bi-rads 2h/o bilateral benign cyst removed from breast in 2004 has noticed hair thinning over the last yearrequesting hormone testing todayroutine labs UTD with PCP within the last year IVAN Louis [address], [place], [address], [facility] 01/09/2024 12:54:38 OBGyn Episode Ob Episode Information Episode Created Date Number of Fetuses Patient Bloodtype Patient rh Status Prepregnancy Weight lbs Domestic Partner Domestic Partner Phone Father Name Wet Process Miller Head Status 10/26/19 1 CLOSED Fetus Data First Name Last Name Admitted to NICU Weight (g) Sex Living Outcome Pediatric Complications Fetus ID Race Codes Race Delivery Type F Vaginal Delivery Erich Calculation Initial Erich Date Initial Exam Date Initial Exam Provider Initial Ultrasound Date Last Menstrual Period Date Ultra Sound Weeks Gestation 0 Eighteen To Twenty Week Erich Update Ultra Sound Date Fundal Height At Umbil Quickening Date Ultra Sound Latest Weeks Gestation Final Erich Confirmed By Final Erich Confirmed Date Final Erich Date Ultra Sound Latest Days Gestation 0 0 Menstrual History Last Menstrual Date Menses Monthly On Bcp Conception Prior Menses Frequency Hcg Plus Date Menarche Onset Age Delivery Information Delivery Date Delivery Type Labor Anesthesia Weeks Gestation Incision Type Labor Labor Length Hrs Delivered By Post Complications Tubal Sterilization Discharge Date Comments 7 Discharge Information Feeding Method Contraceptive Method Maternal HG B and HCT Levels Ob Episode Information Episode Created Date Number of Fetuses Patient Bloodtype Patient rh Status Prepregnancy Weight lbs Domestic Partner Domestic Partner Phone Father Name Wet Process Miller Head Status 10/26/19 1 CLOSED Fetus Data First Name Last Name Admitted to NICU Weight (g) Sex Living Outcome Pediatric Complications Fetus ID Race Codes Race Delivery Type F Vaginal Delivery Erich Calculation Initial Erich Date Initial Exam Date Initial Exam Provider Initial Ultrasound Date Last Menstrual Period Date Ultra Sound Weeks Gestation 0 Eighteen To Twenty Week Erich Update Ultra Sound Date Fundal Height At Umbil Quickening Date Ultra Sound Latest Weeks Gestation Final Erich Confirmed By Final Erich Confirmed Date Final Erich Date Ultra Sound Latest Days Gestation 0 0 Menstrual History Last Menstrual Date Menses Monthly On Bcp Conception Prior Menses Frequency Hcg Plus Date Menarche Onset Age Delivery Information Delivery Date Delivery Type Labor Anesthesia Weeks Gestation Incision Type Labor Labor Length Hrs Delivered By Post Complications Tubal Sterilization Discharge Date Comments 4 Discharge Information Feeding Method Contraceptive Method Maternal HG B and HCT Levels Ob Episode Information Episode Created Date Number of Fetuses Patient Bloodtype Patient rh Status Prepregnancy Weight lbs Domestic Partner Domestic Partner Phone Father Name Wet Process Miller Head Status 10/26/19 1 CLOSED Fetus Data First Name Last Name Admitted to NICU Weight (g) Sex Living Outcome Pediatric Complications Fetus ID Race Codes Race Delivery Type M [id number] Vaginal Delivery Erich Calculation Initial Erich Date Initial Exam Date Initial Exam Provider Initial Ultrasound Date Last Menstrual Period Date Ultra Sound Weeks Gestation 0 Eighteen To Twenty Week Erich Update Ultra Sound Date Fundal Height At Umbil Quickening Date Ultra Sound Latest Weeks Gestation Final Erich Confirmed By Final Erich Confirmed Date Final Erich Date Ultra Sound Latest Days Gestation 0 0 Menstrual History Last Menstrual Date Menses Monthly On Bcp Conception Prior Menses Frequency Hcg Plus Date Menarche Onset Age Delivery Information Delivery Date Delivery Type Labor Anesthesia Weeks Gestation Incision Type Labor Labor Length Hrs Delivered By Post Complications Tubal Sterilization Discharge Date Comments 6 Discharge Information Feeding Method Contraceptive Method Maternal HG B and HCT Levels Ob Episode Information Episode Created Date Number of Fetuses Patient Bloodtype Patient rh Status Prepregnancy Weight lbs Domestic Partner Domestic Partner Phone Father Name Wet Process Miller Head Status 10/26/19 22 1 CLOSED Fetus Data First Name Last Name Admitted to NICU Weight (g) Sex Living Outcome Pediatric Complications Fetus ID Race Codes Race Delivery Type F Vaginal Delivery Erich Calculation Initial Erich Date Initial Exam Date Initial Exam Provider Initial Ultrasound Date Last Menstrual Period Date Ultra Sound Weeks Gestation 0 Eighteen To Twenty Week Erich Update Ultra Sound Date Fundal Height At Umbil Quickening Date Ultra Sound Latest Weeks Gestation Final Erich Confirmed By Final Erich Confirmed Date Final Erich Date Ultra Sound Latest Days Gestation 0 0 Menstrual History Last Menstrual Date Menses Monthly On Bcp Conception Prior Menses Frequency Hcg Plus Date Menarche Onset Age Delivery Information Delivery Date Delivery Type Labor Anesthesia Weeks Gestation Incision Type Labor Labor Length Hrs Delivered By Post Complications Tubal Sterilization Discharge Date Comments 2 Discharge Information Feeding Method Contraceptive Method Maternal HG B and HCT Levels
--- OUTSIDE RECORDS SUMMARY | 2024-09-05 10:35 | XMS_ITS | Patient Health Summary ---
Author Organization [facility] [employer] Address [address] [place] [address] Care Team Providers Care Support Director Name Role Phone Keegan Velasquez MD Primary Care Provider Note from [facility],non-owned Affiliates and Associated Physician Practices is amultiple site organization consisting of ambulatory clinics and hospital sitesin [place], [place], [place]. This disclosure is being madepursuant to the Care Everywhere program and may not contain all information available regarding this patient. Last updated 18.[facility] Allergies No known active allergies Medications Be [...] Mass Index 22.96 04/27/2020 6:30 PM CDT Care Teams Support Director Relationship Specialty Start Date End Date Keegan Velasquez MD [address] [place] [address] PCP - General Family Medicine 01/10/24
[2024-09-05 10:46] VITALS: BP 100/61; PULSE 118; RESP 18; TEMP 37.2; O2SAT 99
--- NOTE | 2024-09-05 11:03 | ED_ITS ---
HPI - URI/Sore Throat General Chief Complaint: Upper Respiratory Infection Stated Complaint: bronchitis Time Seen by Provider: 09/05/24 11:03 Source: patient, RN notes reviewed and old records reviewed Mode of arrival: ambulatory Limitations: no limitations History of Present Illness HPI Narrative: 38-year-old female presents to the [facility] with 4 day history of cough, congestion, postnasal drainage. Patient reports being exposed to both flu and COVID. Does not believe she has had fevers Onset (ago): day(s) (4) Related Data Home Medications ?Medication ?Instructions ?Recorded ?Confirmed ?Last Taken ?Type No Home Medications 09/05/24 09/05/24 Unknown History Allergies Allergy/AdvReac Type Severity Reaction Status Date / Time No Known Allergies Allergy Verified 09/05/24 10:46 Review of Systems Review of Systems: All systems reviewed & are unremarkable except as noted in HPI and below Constitutional: Constitutional: Reports as per HPI ENT: Reports system reviewed and no additional complaints, except as documented Cardiovascular: Cardiovascular: Reports no additional cardiovascular complaints, Denies chest pain and Denies dyspnea Respiratory: Respiratory: Reports as per HPI, Denies chest congestion, Reports cough and Denies dyspnea Musculoskeletal: Musculoskeletal: Reports no additional musculoskeletal complaints Integumentary/Breasts: Skin/Breast: Reports system reviewed and no additional complaints, except as docu PMFSH Past Medical History Medical History Vitamin D3 deficiency BMI 23.0-23.9, adult BMI 22.0-22.9, adult Irritant contact dermatitis due to cosmetics Family History Family History Father Hypertension Diabetes mellitus Cancer of ear Grandparent Family history of heart disease in male family member before age 55 Mother Diabetes mellitus Sibling Autoimmune disorder Anemia History of thyroidectomy Social History Social History Smoking status: Never smoker Second hand tobacco smoke exposure: No Alcohol intake: never Substance use: never Substance use type: does not use Do You Feel Safe in your Home?: Yes Lack of Transportation: No Lack of Food: Never True Current Housing: I Have Housing Concerned About Future Housing: No Difficulty Paying Gas/Electric Bills: No Difficulty Paying for Meds: No Currently Unemployed: No Education: Bachelor's Degree Difficulty w/ Childcare or Family Care: No Living arrangements: with family Occupation/Education: occupation 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 There is no relevant family history pertinent to the patient complaint. Exam Const: General: cooperative, healthy appearing, comfortable, no acute distress, well developed, alert and well nourished Nutritional Appearance: well nourished Orientation/consciousness: patient oriented x3 Limitations: no limitations HENMT: Head: normal to inspection Ears: hearing grossly normal bilaterally, external ears normal, TM's normal bilaterally, EAC's normal, mastoids normal and no periauricular adenopathy Mouth: Yes Normal oral and palatal mucosa present, Yes lip normal, Yes tongue normal and Yes moist mucous membranes Throat: posterior oropharynx normal, uvula midline and no uvular edema Eyes: General: appearance normal, both eyes and all related structures Alignment and Position: alignment normal Neck: Neck: normal visual inspection, full ROM, no lymphadenopathy and no meningeal signs Chest: Chest palpation & inspection: normal inspection of the chest Resp: Effort & Inspection: normal respiratory effort and able to speak in complete sentences Auscultation: clear to auscultation bilaterally, no crackles, no rales, no rhonchi and no wheezes Cardio: Rate: regular rate Skin: General skin exam: normal color and no rashes or lesions noted Neuro: General: patient oriented x3, gait normal, moves all extremities and no meningeal signs Cognition (Neuro): normal cognition Speech: normal speech Gait exam (Neuro): Normal gait present Extrem: General: normal to inspection, full ROM, capillary refill normal and normal gait Psych: Appearance: grossly normal and well kempt Mental Status: mental status grossly normal Speech and movement: Normal speech and movement present and Clear speech present Affect: normal affect Attitude: cooperative Course Course Level of Care: Express Care Visit Vital Signs Vital signs: Vital Signs Temperature 98.9 F 09/05/24 10:46 Pulse Rate 118 H 09/05/24 10:46 Respiratory Rate 18 09/05/24 10:46 Blood Pressure 100/61 09/05/24 10:46 Pulse Oximetry 99 01/31/25 10:46 Temperature 98.9 F 09/05/24 10:46 Pulse Rate 118 H 09/05/24 10:46 Respiratory Rate 18 09/05/24 10:46 Blood Pressure 100/61 09/05/24 10:46 Pulse Oximetry 99 09/05/24 10:46 Reviewed MDM - URI/Sore Throat MDM Narrative Medical decision making narrative: Patient sitting in exam room. Nontoxic, vitals stable. Patient in no acute distress. Patient presents with 40 history of URI symptoms. Patient is flu A positive Patient appropriate for outpatient treatment with close follow-up Discharge instructions reviewed with patient, as well as provided in writing per nursing staff. The instructions also include specific and strict return/GO TO THE ER as well as f/u information. All questions have been answered, and the patient deny any further questions with discharge and discharge plan. Some parts of this dictation were generated by voice recognition software and may contain typographical and/or grammatical inaccuracies. Differential Diagnosis Differential diagnosis: Likely upper respiratory infection, sinusitis, viral infection, bronchitis and influenza Lab Data Labs: Lab Results 09/05/24 Range/Units 11:23 POC Influenza A Ag Positive (Negative) POC Influenza B Ag Negative (Negative) POC SARS CoV-2 Ag Negative (Negative) Reviewed Critical Care Time Critical Care Time Critical Care Time: No Discharge Plan Discharge Clinical Impression: Influenza A Patient Disposition: Home, Self-Care Condition: Stable Instructions: Antibiotic Form, Influenza (ED) Additional Instructions: Your rapid COVID test were negative Your rapid flu test was positive for influenza A Your symptoms are due to a viral illness, which is not treated with antibiotics. Typically viral infections last 7-10 days, can linger for couple of weeks. It is very important to treat your symptoms. Drink plenty of water, Gatorade, Pedialyte, ice pops or Jell-O. -Alternate Tylenol and Motrin per package directions for fever or pain. You can alternate every 4 hours -Antihistamine medication such as Zyrtec/Claritin/Ne during the day can help improve symptoms. -doing daily nasal irrigations can help relieve pressure your sinuses. Things like a Neti pot -Use Flonase twice a day for 5 days then daily to help reduce the inflammation and dry up your sinuses. -You can also use Mucinex. Be sure to drink plenty of water with this medication at least 8 ounces with every dose and it is important to drink 8 to 10 glasses of water per day. Water is a natural decongestant -Eat and drink things that are easy to swallow, like tea or soup, or popsicles. -Oral rinses such as: Salt water gargles and/or may use topical anesthetic (eg. Chloraseptic spray) or lozenges to relieve dryness or throat pain). -Frequent hand washing or hand certified novell administrator is one of the best ways to prevent spread of infection. -Using a vaporizer or humidifier at night will also help thin secretions and help with coughing up phlegm. -Follow up with primary care provider in 7-10 days if condition is not improving - For new or worsening symptoms go directly to the nearest ER Patient Language: Bulgarian Prescriptions: No Action No Home Medications Follow-up/Referrals: Keegan Velasquez MD [Primary Care Provider] - 2 Weeks ([facility] care follow up ) Stand Alone Forms: Work/School Release IP Time of Disposition: 11:10
[2024-09-05 11:25] LABS: EDCOVIDSCREEN Negative (Negative); EDINFLUASCREEN Positive (Negative); EDINFLUBSCREEN Negative (Negative)
== END 2024-09-05 11:14 | disposition home or self-care (01) ==
PROVIDERS: Emergency Provider Nurse Practitioner; PCP Family Medicine
DX: J10.1 Influenza due to other identified influenza virus with other respiratory manifestations (principal); Z20.822 Contact with and (suspected) exposure to COVID-19
CPT/HCPCS: 87426; 87804; 99212; G0463

== ENCOUNTER 2024-09-18 13:02 | Outpatient (CLI) | payer OTHER, SELFPAY ==
--- NOTE | ~2024-09-18 | MR_ITS ---
MR breast BI wo/w con 09/19/2024 08:04 PROGRESSIVE DIE MAKER INDICATION: Dense breasts. Bilateral breast cysts. TECHNIQUE: MRI of the breasts perform using standard protocol pre-and post IV contrast with the follo wing sequences: Axial T2 STIR, axial T1, axial vibrant T1 with fat suppression precontrast and multip hasic postcontrast. 11 cc of MultiHance administered intravenously. COMPARISON: Comparison to multiple prior studies sequentially, with oldest reviewed study dated 07/07. FINDINGS: There are bilateral renal cysts, largest in the left breast measuring 3.4 cm. The breasts a re extremely dense. Right breast: There are no abnormalities on the precontrast sequences. There is mild background paren chymal enhancement. There is a foci of enhancement measuring 4 mm in the upper inner quadrant with ra pid washout kinetics, most likely benign intramammary lymph node. No evidence of signal abnormalities in the axillary or internal mammary node distributions. LEFT BREAST: No signal abnormalities on precontrast sequences. There is mild background parenchymal enhancement. In the lower inner quadrant of the left breast at approximately 6:00, middle third there is a 0.47 mm focus of enhancement with rapid plateau enhancement, likely benign. In the central aspe ct of the left breast there is a 3 mm focus of rapid washout enhancement, too small to characterize f or internal fat. In the lower inner quadrant of the left breast at approximately 7:00, middle third t here is a 3 mm focus of rapid plateau enhancement, likely benign. No evidence of signal abnormalities in the axillary or internal mammary node distributions.] IMPRESSION: 1: Bilateral foci of enhancement described above, likely benign. Six-month follow-up MRI is recommend ed. 2: Bilateral breast cysts. BI-RADS CATEGORY 3-PROBABLY BENIGN FINDING RECOMMENDATION: Six-month follow-up MRI of the breasts recommended. Reviewed, dictated and finalized at location B. RESSIVE DIE MAKER IMPRESSION: 1: Bilateral foci of enhancement described above, likely benign. Six-month foll ow-up MRI is recommended. 2: Bilateral breast cysts. BI-RADS CATEGORY 3-PROBABLY BENIGN FINDING RECOMMENDATION: Six-month follow-up MRI of the breasts recommended.
--- OUTSIDE RECORDS SUMMARY | 2024-09-18 13:07 | XMS_ITS | Referral Summary ---
Author Organization [facility] Address [address] [place] [address] Care Team Providers Care Washer And Capper Machine Operator Name Role Phone Keegan Velasquez MD Primary Care Provider [phone] Source Comments [facility],non-owned Affiliates and Associated Physician Practices is amultiple site organization consisting of ambulatory clinics and hospital sitesin [place], [place], [place] and [place]. This disclosure is being madepursuant to the Care Everywhere program and may not contain all information available regarding this patient. Last updated 18.[facility] Allergies No known active allergies Medications Be [...] 90 02/15/2024 3:22 PM CDT Temperature 37.2 C (98.9 F) 02/15/2024 3:22 PM CDT Respiratory Rate 16 04/27/2020 6:30 PM CDT Oxygen Saturation 96% 02/15/2024 3:22 PM CDT Inhaled Oxygen Concentration - - Weight 58.8 kg (129 lb 9.6 oz) 02/15/2024 3:22 P M CDT Height 160 cm (5' 3 ) 04/27/2020 6:30 PM CDT Body Mass Index 22.96 04/27/2020 6:30 PM CDT Plan of Treatment Not on file Care Teams Washer And Capper Machine Operator Relationship Specialty Start Date End Date Keegan Velasquez MD [address] [place] [address] PCP - General Family Medicine 01/10/24
--- OUTSIDE RECORDS SUMMARY | 2024-09-18 13:07 | XMS_ITS | Patient Health Summary ---
Author Organization [facility] Address [address] [place] [address] Care Team Providers Care Precision Agronomist Name Role Phone Keegan Velasquez MD Primary Care Provider [phone] Note from [facility],non-owned Affiliates and Associated Physician Practices is amultiple site organization consisting of ambulatory clinics and hospital sitesin [place], [place], [place] and [place]. This disclosure is being madepursuant to the Care Everywhere program and may not contain all information available regarding this patient. Last updated 18.[facility] Allergies No known active allergies Medications Be [...] 22.96 04/27/2020 6:30 PM CDT Care Teams Precision Agronomist Relationship Specialty Start Date End Date Keegan Velasquez MD [address] [place] [id number] PCP - General Family Medicine 01/10/24
--- OUTSIDE RECORDS SUMMARY | 2024-09-18 13:07 | XMS_ITS | Clinical Summary ---
Author Organization [facility] Address [address] [place] [address] Care Team Providers Care Senior Court Office Assistant Name Role Phone Keegan Velasquez MD Primary Care Provider [phone] Source Comments [facility],non-owned Affiliates and Associated Physician Practices is amultiple site organization consisting of ambulatory clinics and hospital sitesin [place], [place], [place] and [place]. This disclosure is being madepursuant to the Care Everywhere program and may not contain all information available regarding this patient. Last updated 18.[facility] Allergies No known active allergies Medications Be [...] age to complete this topic Care Teams Senior Court Office Assistant Relationship Specialty Start Date End Date Keegan Velasquez MD [address] [place] [address] PCP - General Family Medicine 01/10/24
== END 2024-09-18 13:03 | disposition home or self-care (01) ==
PROVIDERS: PCP Family Medicine; Visit Provider Surgery
DX: R92.343 Mammographic extreme density, bilateral breasts (principal); N60.02 Solitary cyst of left breast; N60.01 Solitary cyst of right breast
CPT/HCPCS: 77049; A9577; C8908